=== PATIENT | female | born 1950 | race Two or more races ===

== ENCOUNTER → 2019-07-03 | Day surgery (SDC) | payer MEDICARE ==
[2019-07-01 09:27] LABS: HEMATOCRIT 42.4 % (37.0-47.0); HEMOGLOBIN 14.8 G/DL (12.0-16.0); MEAN CORPUSCULAR VOLUME 87 FL (80-99); PLATELET COUNT 322 K/UL (150-450); RED BLOOD COUNT 4.85 M/UL (4.20-5.40); RED CELL DISTRIBUTION WIDTH 11.3 % (11.6-14.8); WHITE BLOOD COUNT 7.2 K/UL (4.8-10.8)
[2019-07-01 10:05] LABS: ANION GAP 7 mmol/L (5-15); BLOOD UREA NITROGEN 16 mg/dL (7-18); CALCIUM 9.5 MG/DL (8.5-10.1); CARBON DIOXIDE 30 MMOL/L (21-32); CHLORIDE 103 MMOL/L (98-107); SODIUM 140 MMOL/L (136-145)
--- NOTE | 2019-07-02 16:00 | Pre-op HX & Phy Repo 2 SIG ---
DATE OF ADMISSION: 07/03/2019 SCHEDULED FOR OUTPATIENT SURGERY: 07/03/2019. HISTORY OF PRESENT ILLNESS: The patient is a 68-year-old female in overall good health with a persistent right axillary cystic nodule. She developed a nodule and then it became infected and quite large. She went to a local urgent care on 06/19/2019, where they performed incision and drainage and started her on doxycycline orally. She then had significant improvement with decrease in size of the lump without any inflammation. She is scheduled to undergo excision of this right axillary cyst. PAST MEDICAL HISTORY/MEDICATIONS: Metoprolol for hypertension and levothyroxine. ALLERGIES: None. OPERATIONS: Years ago breast biopsy, excision of cyst of back, and thyroid surgery. PHYSICAL EXAMINATION: GENERAL: The patient is 5 feet 3 inches, 120 pounds. HEENT: Within normal limits. LUNGS: Clear. HEART: Regular rhythm. BREASTS: Without masses. In the right axillary skin near the triceps area, there is a 2 x 3 cm elevated firm nodule. There is no axillary or supraclavicular lymphadenopathy. There is no sign of acute infection. IMPRESSION: Right axillary cyst with infection, now resolved. PLAN: Excision of right axillary cyst. I have had a full discussion with the patient regarding the nature of her condition, the nature of the surgery, indications, alternatives, options, and risks including bleeding, infection, recurrence of the cyst, development of a new cyst, infection, or scarring etc. All questions have been answered. She understands and agrees to proceed. Yanick Avalos M.D. DR: YORDY JOB#: [id number] CC:
[~2019-07-03] VITALS: Ht 160 cm; Wt 52.2 kg
[2019-07-03] VITALS (14 sets, daily range): BP systolic 104–140; BP diastolic 64–83
[~2019-07-03] MED LIST: Bacitracin 50000 Units Vial ONE; Bacitracin Oint 15gm Tube TOPIC ONE; D5 1/2NS 1,000 ML IV SCH; HYDROcodone/Acetamin 5/325 tab ORAL PRN; Hydromorphone 0.5mg/0.5ml inj IVP PRN; Ketorolac 30mg Inj IV PRN; LR 1000ml 1,000 ML IVLG SCH; LR 1000ml ONE; Lidocaine 1% 10mg/ml/Epi 0.005mg/ml 30ml vial INJ ONE; Lidocaine 1% Plain 30 ml INJ ONE; METOPROLOL TART25 MG ORAL; Midazolam 2mg/2ml Inj ONE; NS Irrig 1000ml IRRIG ONE; SYNTHROID125 MCG ORAL; Sterile Water Irrig 1000ml IRRIG ONE; Tylenol #3 tab (300mg/30mg) ORAL PRN; fentaNYL 100 mcg/2 mL IV ONE
--- NOTE | 2019-07-03 09:19 | NUR ---
Sips of water taken at 0545 this morning with meds.
--- NOTE | 2019-07-03 09:52 | Pre-Procedure Note/Attestation ---
Pre-Procedure Note/Attestation Complete Prior to Procedure Planned Procedure: right Procedure Narrative: excision of right axillary cyst Indications for Procedure Pre-Operative Diagnosis: right axillary cyst Attestation I attest that I discussed the nature of the procedure; its benefits; risks and complications; and alternatives (and the risks and benefits of such alternatives ), prior to the procedure, with the patient (or the patient's legal registered representative). I attest that, if there was a reasonable possibility of needing a blood transfusion, the patient (or the patient's legal registered representative) was given the [facility] standardized written summary, pursuant to the [place] Blood Safety Act ([place] Health and Safety Code # 1645, as amended). I attest that I re-evaluated the patient just prior to the surgery and that there has been no change in the patient's H&P, except as documented below: none Yanick Avalos MD July 03, 2019 09:52
--- NOTE | 2019-07-03 10:49 | Anethesia Preoperative Eval ---
Anesthesia Pre-op PMH/ROS General Date of Evaluation: July 03, 2019 Time of Evaluation: 10:45 Anesthesiologist: Cayetano ASA Score: ASA 2 Mallampati Score Class I : Soft palate, uvula, fauces, pillars visible Class II: Soft palate, uvula, fauces visible Class III: Soft palate, base of uvula visible Class IV: Only hard plate visible Mallampati Classification: Class II Surgeon: Bailey Diagnosis: R axillary mass Surgical Procedure: Excision of R axillary mass Anesthesia History: none Family History: no anesthesia problems Allergies: Coded Allergies: No Known Allergies (Unverified , 07/01/19) Medications: see eMAR Patient NPO?: Yes Past Medical History Cardiovascular: Reports: HTN - mild; Denies: CAD, SC, valve dz, arrhythmia, other Pulmonary: Denies: asthma, COPD, ISAIAS, other Gastrointestinal/Genitourinary: Reports: GERD - mild; Denies: CRI, ESRD, other Neurologic/Psychiatric: Reports: depression/anxiety; Denies: dementia, CVA, TIA, other Endocrine: Reports: hypothyroidism - s/p partial thyroidectomy for goiter HEENT: Denies: cataract (L), cataract (R), glaucoma, [place] (L), [place] (R), other Hematology/Immune: Denies: anemia, DVT, bleeding disorder, other Musculoskeletal/Integumentary: Denies: OA, RA, DJD, DDD, edema, other PMH Narrative: as above PSxH Narrative: Thyroidectomy, breast Sx, Anesthesia Pre-op Phys. Exam Physician Exam Last Vital Signs Date Time Temp Pulse Resp B/P (MAP) Pulse Ox O2 Delivery O2 Flow Rate FiO2 07/03/19 09:45 Room Air 07/03/19 09:20 97.0 77 18 140/83 100 Constitutional: NAD Neurologic: CN 2-12 intact Cardiovascular: RRR, no M/R/G Respiratory: CTA Gastrointestinal: S/NT/ND Airway Exam Mallampati Score: Class II MO: full Neck: flexible ROM: full Teeth: intact Dentures: no upper, no lower Anesthesia Pre-op A/P Labs see chart Studies Pre-op Studies: EKG - NSR Risk Assessment & Plan Assessment: ASA 2 Plan: MAC Status Change Before Surgery: No Pre-Antibiotics Drug: Ancef 1gr. Given Within 1 Hr of Incision: Yes Time Given: 11:10 Felton Monteiro MD July 03, 2019 10:49
--- NOTE | 2019-07-03 11:48 | Brief Operative Note ---
Immediate Post Operative Note Operative Note Pre-op Diagnosis: right axillary cyst Procedure: excision infected right axillary cyst Post-op Diagnosis: infected right axillary cyst Post-op Diagnosis: same as pre-op Findings: consistent w/pre-op dx studies Surgeon: jarvis Anesthesiologist: marcela Anesthesia: MAC Specimen: yes - right axiallry cyst Complications: none Condition: stable Fluids: see anesthesia record Estimated Blood Loss: minimal Drains: none Implant(s) used?: No Yanick Avalos MD July 03, 2019 11:48
--- NOTE | 2019-07-03 11:51 | Immediate Post-Op Evaluation ---
Immediate Post-Op Evalulation Immediate Post-Op Evalulation Procedure: Excision of R axillary mass Date of Evaluation: July 03, 2019 Time of Evaluation: 11:50 IV Fluids: 600 Blood Products: none Estimated Blood Loss: min Urinary Output: none Blood Pressure Systolic: 125 Blood Pressure Diastolic: 69 Pulse Rate: 62 Respiratory Rate: 18 O2 Sat by Pulse Oximetry: 99 Temperature (Fahrenheit): 97.6 Pain Score (1-10): 1 Nausea: No Vomiting: No Complications none Patient Status: awake, patent, none Felton Monteiro MD July 03, 2019 11:51
--- NOTE | 2019-07-03 12:27 | 48 Hour Post Anesthesia Eval ---
Post Anesthesia Evaluation Procedure: Excision of R axillary mass Date of Evaluation: July 03, 2019 Time of Evaluation: 12:26 Blood Pressure Systolic: 116 0: 64 Pulse Rate: 62 Respiratory Rate: 18 Temperature (Fahrenheit): 97.6 O2 Sat by Pulse Oximetry: 99 Airway: patent Nausea: No Vomiting: No Pain Intensity: 2 Hydration Status: adequate Cardiopulmonary Status: stable Mental Status/LOC: patient returned to baseline Follow-up Care/Observations: n/a Post-Anesthesia Complications: none Follow-up care needed: ready to discharge Felton Monteiro MD July 03, 2019 12:27
--- NOTE | 2019-07-03 19:00 | Operative Note - Dictated ---
DATE OF OPERATION: 07/03/2019 SURGEON: Yanick Avalos M.D. MANAGER ENVIRONMENTAL AFFAIRS: None. ANESTHESIOLOGIST: Felton Monteiro M.D. TYPE OF ANESTHESIA: Local IV sedation, monitored anesthesia care. PREOPERATIVE DIAGNOSIS: Right axillary cyst. POSTOPERATIVE DIAGNOSIS: Infected right axillary cyst. OPERATION PERFORMED: Excision of infected right axillary cyst. DESCRIPTION OF PROCEDURE: The patient was taken to the operating room and with intravenous sedation was prepped and draped in usual fashion. The lesion was located in the skin of the lower axilla. A 1% lidocaine plain was used for local infiltration. An elliptical incision was made and the infected cyst excised. The tissues were inflamed around it and hemostasis carefully achieved with cautery. Incision was closed with interrupted 4-0 Vicryl subcutaneous sutures followed by 4-0 nylon interrupted vertical mattress sutures. Tincture of benzoin and half-inch Steri-Strips were applied followed by dry sterile dressing. Final sponge and needle counts were correct. Specimen was given for pathology. The patient tolerated the procedure well, left the operating room in good condition. Yanick Avalos M.D. DR: Jasen JOB#: [id number] CC:
== END | disposition home or self-care (01) ==
LOC: SUR 08:34
DX: L72.0 Epidermal cyst (principal); I10 Essential (primary) hypertension; Z79.899 Other long term (current) drug therapy; B99.9 Unspecified infectious disease; K21.9 Gastro-esophageal reflux disease without esophagitis; E03.9 Hypothyroidism, unspecified; E89.0 Postprocedural hypothyroidism; F32.9 Major depressive disorder, single episode, unspecified; F41.9 Anxiety disorder, unspecified
CPT/HCPCS: 11404; 12032; 36415; 80048; 85007; 85025; 93005; 94003; J0690; J1885; J2001; J2250; J2704; J3010; J7120; 94150